=== PATIENT | female | born 1970 | race Caucasian/White ===

== ENCOUNTER 2019-02-12 04:20 | Emergency (ER) | payer OTHER ==
[~2019-02-12] VITALS: Ht 160 cm; Wt 64.9 kg
[~2019-02-12 04:20] MED LIST: ABILIFY 5 MG TAB5 MG PO; ABILIFY1 MG/1 ML PO; AMBEREN; B-50 COMPLEX1 EAC1; B-50 COMPLEX1 EACH PO; B12INJ; BACLOFEN 10MG T10 M1 PO; BACTRIM DS TAB1 EACH PO; BUTALB-APAP-CA1 EACH PO; CELEXA 20 MG TA20 M1 PO; CIPROFLOXACIN500 M1 PO; CLONAZEPAM 0.50.5 M1 PO; CLONAZEPAM PO; CYMBALTA PO; CYMBALTA60 MG PO; FIORICET 50-321 EACH PO; FIORICET PO; FIORICET-COD 31 EACH PO; FIORINAL 50-321 EACH PO; FOLIC ACID1 MG; HYDROCODONE-ACE15 ML PO; IMITREX100 MG PO; IMITREX4 MG/0.51 SUBQ; INDERAL 20 MG T20 M1; LATUDA20 MG PO; LEVOTHYROXIN0.025 MG PO; LITHIUM CARBON600 MG PO; LORTAB; LORTAB 5 MG/5001 TA1 PO; MACROBID 100 M100 M1 PO; MAPAP500 MG PO; MAXALT MLT ODT10 MG PO; MAXALT PO; MAXALT10 MG PO; MULTIVITAMINS PO; NASCOBAL2.3 ML NS; NORCO 5-325 TA1 EACH PO; PRIMIDONE 250M250 M1 PO; PROPRANOLOL 1010 M1 PO; PROPRANOLOL 1010 MG; PROPRANOLOL 20M20 M1 PO; PROPRANOLOL 20M20 MG PO; PROPRANOLOL 4040 M1 PO; QUETIAPINE FUMA25 MG PO; RISPERDAL0.25 MG PO; SEROQUEL 25 MG25 M2 PO; SEROQUEL 50 MG50 MG PO; STROVITE1 EACH PO; TRAZODONE 150150 M1 PO; TRAZODONE HCL50 MG PO; TYLENOL325 MG PO; VALIUM2 MG PO; VITAMIN B COMP1 EACH PO; VITAMIN D1000 UNI2 PO; XANAX 0.25 MG0.25 MG PO; XANAX 0.5 MG0.5 MG PO; ZOFRAN 4 MG ORAL4 M1 DIS; ZOFRAN ODT4 MG DISSOLVE; ZOFRAN ODT4 MG PO; ZOFRAN4 MG PO; ZOFRAN8 MG PO; ZOFRAN8 MG SUBLING
[2019-02-12 04:23] VITALS: BP 136/76
[2019-02-12] MEDS ORDERED: NEURONTIN 300300 M1 PO (04:30)
[2019-02-12] MEDS ORDERED: PENLAC6.6 ML TOP (05:15)
[2019-02-12] MEDS ORDERED: NORCO 5-325 TA1 EAC1 PO (05:15)
== END 2019-02-12 05:25 | disposition home or self-care (01) ==
LOC: ER 04:20
DX: B35.1 Tinea unguium (principal); F31.9 Bipolar disorder, unspecified; G43.909 Migraine, unspecified, not intractable, without status migrainosus; F41.9 Anxiety disorder, unspecified; N80.9 Endometriosis, unspecified; F17.210 Nicotine dependence, cigarettes, uncomplicated; Z90.710 Acquired absence of both cervix and uterus; Z98.890 Other specified postprocedural states; Z88.0 Allergy status to penicillin; Z88.6 Allergy status to analgesic agent; Z88.4 Allergy status to anesthetic agent; Z88.8 Allergy status to other drugs, medicaments and biological substances

== ENCOUNTER 2020-10-18 06:16 | Emergency (ER) | payer OTHER ==
[~2020-10-18] VITALS: Ht 160 cm; Wt 57.6 kg
[~2020-10-18 06:16] MED LIST changes: +NEURONTIN 300300 M1 PO; +NORCO 5-325 TA1 EAC1 PO; +PENLAC6.6 ML TOP
[2020-10-18 07:59] LABS: ABSOLUTE NEUTROPHILS 3.6 thou/uL (1.4-8.2); BASOPHILS 0.6 % (0.0-2.0); EOSINOPHILS 0.8 % (0.0-3.0); HEMATOCRIT 41.3 % (37.0-47.0); LYMPHOCYTES 30.9 % (24.0-44.0); MCH 32.4 pg (26.0-34.0); MCHC 33.8 g/dL (28.0-37.0); MCV 95.7 fL (80.0-100.0); MONOCYTES 8.5 % (1.0-8.0); PLATELET COUNT 244 thou/uL (150-400); POLYS 59.2 % (36.0-66.0); RBC 4.32 mil/uL (4.20-5.00); RDW 13.7 % (10.5-14.5); WBC 6.1 thou/uL (4.0-11.0)
[2020-10-18 08:12] LABS: CALCIUM 8.7 mg/dL (8.5-10.1); CREATININE 0.7 mg/dL (0.6-1.0)
[2020-10-18 08:18] LABS: ALBUMIN 3.8 g/dL (3.4-5.0); TOTAL BILIRUBIN 0.4 mg/dL (0.2-1.0); TOTAL PROTEIN 7.1 g/dL (6.4-8.2)
[2020-10-18] MEDS ORDERED: LORAZEPAM 1 MG T1 MG PO (10:05)
[2020-10-18] MEDS ORDERED: PROPRANOLOL 20M20 M1 PO (10:05)
[2020-10-18] MEDS ORDERED: ABILIFY 2 MG2 M1 PO (10:06)
[2020-10-18] MEDS ORDERED: LEXAPRO 10 MG T10 M1 PO (10:06)
[2020-10-18 10:19] LABS: URINE BILIRUBIN NEGATIVE (Negative); URINE BLOOD NEGATIVE (Negative); URINE CLARITY CLEAR; URINE COLOR YELLOW; URINE GLUCOSE-RANDOM* NEGATIVE (Negative); URINE KETONES NEGATIVE (Negative); URINE LEUKOCYTES-REFLEX NEGATIVE (Negative); URINE NITRITE-REFLEX NEGATIVE (Negative); URINE PROTEIN (DIPSTICK) NEGATIVE (Negative); URINE UROBILINOGEN 0.2 E.U./dl (0.2-1.0)
[2020-10-18] MEDS ORDERED: FLEXERIL PO (10:26)
[2020-10-18 10:36] VITALS: BP 110/42
== END 2020-10-18 10:37 | disposition home or self-care (01) ==
LOC: ER 06:16
PROVIDERS: Emergency Medicine
DX: R10.30 Lower abdominal pain, unspecified (principal); G43.909 Migraine, unspecified, not intractable, without status migrainosus; F17.210 Nicotine dependence, cigarettes, uncomplicated; Z90.710 Acquired absence of both cervix and uterus; Z88.0 Allergy status to penicillin; Z88.6 Allergy status to analgesic agent; Z88.8 Allergy status to other drugs, medicaments and biological substances

== ENCOUNTER 2020-10-28 23:28 | Emergency (ER) | payer OTHER ==
[~2020-10-28] VITALS: Ht 160 cm; Wt 57.6 kg
[~2020-10-28 23:28] MED LIST changes: +ABILIFY 2 MG2 M1 PO; +FLEXERIL PO; +LEXAPRO 10 MG T10 M1 PO; +LORAZEPAM 1 MG T1 MG PO
[2020-10-29] MEDS ORDERED: NORCO 10-325 T1 EACH PO (01:42)
[2020-10-29 02:32] VITALS: BP 127/74
== END 2020-10-29 02:35 | disposition home or self-care (01) ==
LOC: ER 23:28
DX: M25.532 Pain in left wrist (principal); G43.909 Migraine, unspecified, not intractable, without status migrainosus; F17.210 Nicotine dependence, cigarettes, uncomplicated; Z88.0 Allergy status to penicillin; Z88.6 Allergy status to analgesic agent; Z88.8 Allergy status to other drugs, medicaments and biological substances; Z79.899 Other long term (current) drug therapy; Z90.710 Acquired absence of both cervix and uterus; Z98.890 Other specified postprocedural states; Y04.0XXA Assault by unarmed brawl or fight, initial encounter; Y93.89 Activity, other specified; Y92.69 Other specified industrial and construction area as the place of occurrence of the external cause; Y99.9 Unspecified external cause status